=== PATIENT | female | born 1975 | race Caucasian/White ===

== ENCOUNTER → 2024-04-13 | Day surgery (SDC) | payer OTHER | END | disposition home or self-care (01) | LOC: FMAMMOTONE 09:34 | PROVIDERS: ATTEND Surgery | PROC: 0H9T3ZX Drainage of Right Breast, Percutaneous Approach, Diagnostic (ICD-10-PCS; principal; 2024-04-13) | DX: N60.11 Diffuse cystic mastopathy of right breast (principal); N64.89 Other specified disorders of breast; R92.8 Other abnormal and inconclusive findings on diagnostic imaging of breast | CPT/HCPCS: 19081; 76098-TC-FY; 87899; 88305-TC; A4648 ==